=== PATIENT | male | born 1985 | race Caucasian/White ===

== ENCOUNTER 2018-03-19 11:32 | Inpatient (IN) | payer MEDICAID ==
[2018-03-19 12:34] LABS: ADD MAN DIFF? NO
[2018-03-19 12:37] LABS: WHITE BLOOD COUNT 6.2 10^3/ul (4.8-10.8)
[2018-03-19 12:37] LABS: EOSINOPHILS # 0.1 10^3/ul (0.0-0.5); EOSINOPHILS % 1.8 % (0.0-7.0); HEMATOCRIT 23.3 % (42.0-52.0); HEMOGLOBIN 7.7 g/dl (14.0-18.0); LYMPHOCYTES # 0.9 10^3/ul (0.8-2.9); LYMPHOCYTES % 14.5 % (15.0-51.0); MEAN CORPUSCULAR HEMOGLOBIN 30.7 pg (29.0-33.0); MEAN CORPUSCULAR VOLUME 92.8 fl (82.0-101.0); MEAN PLATELET VOLUME 11.2 fl (7.4-10.4); MONOCYTE # 0.4 10^3/ul (0.3-0.9); MONOCYTES % 7.1 % (0.0-11.0); NEUTROPHIL # 4.7 10^3/ul (1.6-7.5); PLATELET COUNT 229 10^3/UL (140-415); RED BLOOD COUNT 2.51 10^6/ul (4.70-6.10); RED CELL DISTRIBUTION WIDTH 14.7 % (11.5-14.5)
[2018-03-19 12:43] LABS: ALANINE AMINOTRANSFERASE 47 IU/L (13-69); ALBUMIN 3.4 g/dl (3.3-4.9); ALKALINE PHOSPHATASE 110 IU/L (42-121); ANION GAP 13 (8-16); ASPARTATE AMINO TRANSFERASE 69 IU/L (15-46); BILIRUBIN,INDIRECT 0.3 mg/dl (0-1.1); BILIRUBIN,TOTAL 0.3 mg/dl (0.2-1.3); BLOOD UREA NITROGEN 21 mg/dl (7-20); CALCIUM 8.8 mg/dl (8.4-10.2); CARBON DIOXIDE 24 mmol/L (21-31); CHLORIDE 109 mmol/L (97-110); CREATININE 0.81 mg/dl (0.61-1.24); GLUCOSE 107 mg/dl (70-220); POTASSIUM 4.6 mmol/L (3.5-5.1); SODIUM 141 mmol/L (135-144); TOTAL PROTEIN 7.6 g/dl (6.1-8.1)
[2018-03-19 12:50] LABS: LACTIC ACID 1.1 mmol/L (0.5-2.0)
[2018-03-19] MEDS: SODIUM CHLORIDE 0.9% 1L BAG IV* (12:50)
[2018-03-19 12:54] LABS: TROPONIN-I < 0.012 ng/ml (0.000-0.120)
[2018-03-19 12:56] LABS: INR 0.95; PROTIME 12.8 Sec (11.9-14.9)
[2018-03-19 12:57] LABS: PARTIAL THROMBOPLASTIN TIME 30.5 Sec (25.0-35.0)
[2018-03-19 13:41] LABS: ADD UMIC NO; UR ASCORBIC ACID NEGATIVE (NEGATIVE); UR BILIRUBIN (Dip) NEGATIVE (NEGATIVE); UR BLOOD (Dip) NEGATIVE (NEGATIVE); UR CLARITY CLEAR (CLEAR); UR COLOR YELLOW (YELLOW); UR GLUCOSE (Dip) NEGATIVE (NEGATIVE); UR KETONES (Dip) NEGATIVE (NEGATIVE); UR LEUKOCYTE ESTERASE (Dip) NEGATIVE Leu/ul (NEGATIVE); UR NITRITE (Dip) NEGATIVE (NEGATIVE); UR SPECIFIC GRAVITY (Dip) 1.017 (1.003-1.030); UR TOTAL PROTEIN (Dip) NEGATIVE (NEGATIVE); UR UROBILINOGEN (Dip) NEGATIVE (NEGATIVE)
[2018-03-19] MEDS ORDERED: morphine 2 MG INJ IV (15:00)
[2018-03-19] MEDS ORDERED: DOCUSATE SODIUM 100 MG CAP PO (15:00)
[2018-03-19] MEDS ORDERED: HYDROCODONE/APAP (5/325) TAB PO (15:00)
[2018-03-19] MEDS ORDERED: NACL 0.9% 3 ML SYG IV (15:00)
[2018-03-19] MEDS ORDERED: ONDANSETRON 4 MG INJ IV (15:00)
[2018-03-19] MEDS ORDERED: MAGNESIUM HYDROXIDE 30ML CUP PO (15:00)
[2018-03-19] MEDS ORDERED: ZOLPIDEM 5 MG TAB PO (15:00)
[2018-03-19] MEDS: PANTOPRAZOLE 40 MG INJ IV ×2 (15:07→21:06)
[2018-03-19 15:32] LABS: IMMEDIATE SPIN CROSSMATCH 1 1
[2018-03-19] MEDS: ACETAMINOPHEN 325 MG TAB PO (16:28)
[2018-03-19] MEDS: SOD CHLORIDE 0.9% 1,000 ML IV (18:31)
[2018-03-19 20:45] LABS: LACTIC ACID < 0.5 mmol/L (0.5-2.0)
[2018-03-19 23:26] LABS: LACTIC ACID < 0.5 mmol/L (0.5-2.0)
[2018-03-20] MEDS: SOD CHLORIDE 0.9% 1,000 ML IV ×4 (00:38→20:02)
[2018-03-20] MEDS: PANTOPRAZOLE 40 MG INJ IV ×2 (05:18→17:51)
[2018-03-20 05:54] LABS: ADD MAN DIFF? NO
[2018-03-20 06:00] LABS: ABNORMAL IP MESSAGE 1; BASOPHILS % 0.2 % (0.0-2.0); EOSINOPHILS # 0.1 10^3/ul (0.0-0.5); EOSINOPHILS % 2.6 % (0.0-7.0); HEMATOCRIT 25.7 % (42.0-52.0); HEMOGLOBIN 8.5 g/dl (14.0-18.0); LYMPHOCYTES # 0.5 10^3/ul (0.8-2.9); LYMPHOCYTES % 10.7 % (15.0-51.0); MEAN CORPUSCULAR HEMOGLOBIN 30.4 pg (29.0-33.0); MEAN CORPUSCULAR HGB CONC 33.1 g/dl (32.0-37.0); MEAN CORPUSCULAR VOLUME 91.8 fl (82.0-101.0); MEAN PLATELET VOLUME 10.6 fl (7.4-10.4); MONOCYTE # 0.3 10^3/ul (0.3-0.9); MONOCYTES % 6.1 % (0.0-11.0); NEUTROPHIL # 3.7 10^3/ul (1.6-7.5); PLATELET COUNT 205 10^3/UL (140-415); POSITIVE DIFF @See below; RED CELL DISTRIBUTION WIDTH 14.8 % (11.5-14.5)
[2018-03-20 06:00] LABS: WHITE BLOOD COUNT 4.6 10^3/ul (4.8-10.8)
[2018-03-20] MEDS ORDERED: PANTOPRAZOLE 40 MG INJ IV (06:00)
[2018-03-20 06:29] LABS: ALANINE AMINOTRANSFERASE 52 IU/L (13-69); ALBUMIN 2.9 g/dl (3.3-4.9); ALKALINE PHOSPHATASE 85 IU/L (42-121); ANION GAP 10 (8-16); ASPARTATE AMINO TRANSFERASE 60 IU/L (15-46); BILIRUBIN,INDIRECT 0.3 mg/dl (0-1.1); BILIRUBIN,TOTAL 0.3 mg/dl (0.2-1.3); BLOOD UREA NITROGEN 11 mg/dl (7-20); CALCIUM 8.2 mg/dl (8.4-10.2); CARBON DIOXIDE 21 mmol/L (21-31); CHLORIDE 115 mmol/L (97-110); CREATININE 0.61 mg/dl (0.61-1.24); GLUCOSE 84 mg/dl (70-220); MAGNESIUM 1.9 mg/dl (1.7-2.5); PHOSPHORUS 3.2 mg/dl (2.5-4.9); POTASSIUM 4.1 mmol/L (3.5-5.1); SODIUM 142 mmol/L (135-144); TOTAL PROTEIN 6.5 g/dl (6.1-8.1)
[2018-03-20 06:46] LABS: FREE THYROXINE INDEX (Calc) 2.73 ug/ml (0.65-3.89); T3 UPTAKE 30.3 % (23.5-40.5)
[2018-03-20 08:48] LABS: HEMOGLOBIN A1C 5.6 % (0-5.9)
[2018-03-20] MEDS: BISACODYL (EC) 5 MG TAB PO (16:11)
[2018-03-20] MEDS: MAGNESIUM CITRATE 300 ML BTL PO (17:51)
[2018-03-20] MEDS: POLYETHYLENE GLYCOL 3350 119 GM POWDER PO (19:26)
[2018-03-20] MEDS: ACETAMINOPHEN 325 MG TAB PO (20:01)
[2018-03-21] MEDS: SOD CHLORIDE 0.9% 1,000 ML IV ×2 (02:00→13:06)
[2018-03-21] MEDS: PANTOPRAZOLE 40 MG INJ IV ×2 (05:39→22:32)
[2018-03-21 05:45] LABS: ADD MAN DIFF? NO
[2018-03-21 05:55] LABS: BASOPHILS % 0.2 % (0.0-2.0); EOSINOPHILS # 0.2 10^3/ul (0.0-0.5); EOSINOPHILS % 3.9 % (0.0-7.0); HEMATOCRIT 25.7 % (42.0-52.0); HEMOGLOBIN 8.2 g/dl (14.0-18.0); LYMPHOCYTES # 0.8 10^3/ul (0.8-2.9); LYMPHOCYTES % 18.6 % (15.0-51.0); MEAN CORPUSCULAR HEMOGLOBIN 29.7 pg (29.0-33.0); MEAN CORPUSCULAR HGB CONC 31.9 g/dl (32.0-37.0); MEAN CORPUSCULAR VOLUME 93.1 fl (82.0-101.0); MEAN PLATELET VOLUME 11.1 fl (7.4-10.4); MONOCYTE # 0.4 10^3/ul (0.3-0.9); MONOCYTES % 8.6 % (0.0-11.0); NEUTROPHIL # 2.8 10^3/ul (1.6-7.5); NEUTROPHILS % 68.2 % (39.0-77.0); NUCLEATED RED BLOOD CELLS% 0.5 /100WBC (0.0-0.0); PLATELET COUNT 223 10^3/UL (140-415); RED BLOOD COUNT 2.76 10^6/ul (4.70-6.10); RED CELL DISTRIBUTION WIDTH 15.4 % (11.5-14.5)
[2018-03-21 05:55] LABS: WHITE BLOOD COUNT 4.1 10^3/ul (4.8-10.8)
[2018-03-21] MEDS: POLYETHYLENE GLYCOL 3350 119 GM POWDER PO (06:10)
[2018-03-21] MEDS: BISACODYL (EC) 5 MG TAB PO (08:07)
[2018-03-21] MEDS: PROPOFOL 60 ML (18:18)
[2018-03-21 20:26] LABS: HIV 1&2 ANTIBODY REACTIVE (NEGATIVE)
[2018-03-22] MEDS: SOD CHLORIDE 0.9% 1,000 ML IV ×2 (02:38→06:48)
[2018-03-22] MEDS: PANTOPRAZOLE 40 MG INJ IV (06:47)
[2018-03-22] MEDS ORDERED: FLUCONAZOLE 200 MG TAB PO (13:30)
[2018-03-22] MEDS ORDERED: ELVITEGR/COBICIST/EMTRIC/TENOF 1 EACH TABLET PO (14:00)
[2018-03-23] MEDS ORDERED: FLUCONAZOLE 100 MG TAB PO (09:00)
[2018-03-23 17:41] LABS: LYMPHOCYTE - % CD4 (HELPER) 1 % (30-61); LYMPHOCYTE - %CD8 (SUPPRESSOR) 60 % (12-42); LYMPHOCYTE - ABSOLUTE 780 cells/uL (850-3900); LYMPHOCYTE - ABSOLUTE CD4 <20 cells/uL (490-1740); LYMPHOCYTE - ABSOLUTE CD8 466 cells/uL (180-1170); LYMPHOCYTE - CD4/CD8 RATIO 0.01 (0.86-5.00)
== END 2018-03-22 15:50 | disposition home or self-care (01) | DRG 378 ==
LOC: 2NE 03-22 12:59 → E/R 11:32 → 6WM 14:33
PROC: 0DB58ZX Excision of Esophagus, Via Natural or Artificial Opening Endoscopic, Diagnostic (ICD-10-PCS; principal; 2018-03-21 17:30)
PROC: 0DB68ZX Excision of Stomach, Via Natural or Artificial Opening Endoscopic, Diagnostic (ICD-10-PCS; 2018-03-21 17:30)
PROC: 0DJD8ZZ Inspection of Lower Intestinal Tract, Via Natural or Artificial Opening Endoscopic (ICD-10-PCS; 2018-03-21 17:30)
PROC: 30233N1 Transfusion of Nonautologous Red Blood Cells into Peripheral Vein, Percutaneous Approach (ICD-10-PCS; 2018-03-21 17:30)
DX: K29.71 Gastritis, unspecified, with bleeding (principal); B37.81 Candidal esophagitis; K64.8 Other hemorrhoids; K64.4 Residual hemorrhoidal skin tags; A63.0 Anogenital (venereal) warts; D50.0 Iron deficiency anemia secondary to blood loss (chronic)
CPT/HCPCS: 36415; 36430; 70450; 71045; 80053; 81003; 83036; 83605; 83735; 84100; 84436; 84479; 84484; 85025; 85610; 85730; 86360; 86701; 86703; 86850; 86900; 86901; 86920; 87040; 87086; 87536; 88305; 88312; 88313; 93005; 99285-25